=== PATIENT | female | born 1990 | race African-American/Black ===

== ENCOUNTER 2020-10-28 15:40 | Inpatient (IN) | payer OTHER ==
[2020-10-28 17:45] LABS: BASO % 0.4 % (0-2.0); EOS % 0.9 % (0-4.5); HEMATOCRIT 28.8 % (32.4-45.2); HEMOGLOBIN 9.8 GM/dL (10.7-15.3); LYMPH % 15.5 % (8-40); MCH 29.1 pg (25.7-33.7); MEAN CELL VOLUME 85.5 fl (80-96); MEAN PLT VOLUME 8.4 fl (7.5-11.1); MONO % 7.6 % (3.8-10.2); NEUT % 75.6 % (42.8-82.8); PLATELET COUNT 235 K/MM3 (134-434); RBC 3.37 M/mm3 (3.60-5.2); RDW 13.8 % (11.6-15.6); WHITE BLOOD COUNT 9.4 K/mm3 (4.0-10.0)
[2020-10-28 18:12] VITALS: BMI 34.5
[2020-10-28 18:14] LABS: POTASSIUM 3.6 mmol/L (3.5-5.1)
[2020-10-28 18:15] LABS: CALCIUM 8.2 mg/dL (8.5-10.1)
[2020-10-28 18:16] LABS: BLOOD UREA NITROGEN 11.8 mg/dL (7-18)
[2020-10-28 18:19] LABS: CREATININE 0.6 mg/dL (0.55-1.3)
[2020-10-28] MEDS ORDERED: DEXTROSE 5%-LACTATED RINGERS 1,000 ML IV SCH ×2 (18:30→23:00)
[2020-10-28 18:48] LABS: INR 0.97 (0.83-1.09); PROTHROMBIN TIME (PATIENT) 11.7 SEC (9.7-13.0)
[2020-10-28 18:51] LABS: ACTIVATED PTT 27.7 SECONDS (25.2-36.5)
[2020-10-28 19:14] LABS: HIV INTERPRETATION NEGATIVE (NEGATIVE)
[2020-10-28] MEDS ORDERED: DINOPROSTONE 10 MG VAGINAL SUPPOSITORY VG ONE (22:30)
[2020-10-28] MEDS ORDERED: PROMETHAZINE HCL 25 MG/1 ML VIAL IVPUSH ONE (23:02)
[2020-10-29] MEDS ORDERED: BUTORPHANOL TARTRATE 1 MG/ML VIAL IVPB ONE (01:02)
[2020-10-29] MEDS ORDERED: OXYTOCIN 30 UNITS in 0.9% NS 30 UNIT/500 ML INFUS.BAG IVPB SCH (08:30)
[2020-10-29 08:54] LABS: POC NITRAZINE POS
[2020-10-29] MEDS ORDERED: OXYTOCIN 20 UNITS in 0.9% NS 20 UNIT/1,000 ML INFUS.BAG IV ONE ×3 (08:57→13:15)
[2020-10-29] MEDS ORDERED: AMPICILLIN - 2 GM in SODIUM CHLORIDE 100 ML IVPB ONE (10:00)
[2020-10-29] MEDS ORDERED: BUTORPHANOL TARTRATE 2 MG/ML VIAL ONE (11:11)
[2020-10-29] MEDS ORDERED: PROMETHAZINE HCL 25 MG/1 ML VIAL ONE (11:12)
[2020-10-29] MEDS ORDERED: WITCH HAZEL 50% (TUCKS) 40 PAD/JAR PAD TP PRN (13:24)
[2020-10-29] MEDS ORDERED: oxyCODONE HCL 5 MG TABLET PO PRN (13:24)
[2020-10-29] MEDS ORDERED: BISACODYL 10 MG SUPP.RECT RC PRN (13:24)
[2020-10-29] MEDS ORDERED: BENZOCAINE 28 GM HEMORRHOIDAL OINTMENT TP PRN (13:24)
[2020-10-29] MEDS ORDERED: METHYLERGONOVINE MALEATE 0.2 MG/1 ML AMP IM PRN (13:24)
[2020-10-29] MEDS ORDERED: BENZOCAINE 20% 57 GM BOTTLE TP PRN (13:24)
[2020-10-29] MEDS ORDERED: OXYTOCIN 20 UNITS in 0.9% NS 20 UNIT/1,000 ML INFUS.BAG IV SCH (13:30)
[2020-10-29] MEDS: ACETAMINOPHEN 325 MG TABLET (FP) PO PRN (16:04)
[2020-10-29] MEDS: IBUPROFEN 600 MG TABLET (FP) PO PRN (16:05)
[2020-10-30] MEDS: ACETAMINOPHEN 325 MG TABLET (FP) PO PRN (02:00)
[2020-10-30] MEDS: IBUPROFEN 600 MG TABLET (FP) PO PRN (02:00)
[2020-10-30 09:31] LABS: BASO % 0.4 % (0-2.0); HEMATOCRIT 25.6 % (32.4-45.2); HEMOGLOBIN 8.8 GM/dL (10.7-15.3); LYMPH % 15.3 % (8-40); MCH 29.4 pg (25.7-33.7); MCHC 34.3 g/dl (32.0-36.0); MEAN CELL VOLUME 85.7 fl (80-96); MEAN PLT VOLUME 8.9 fl (7.5-11.1); MONO % 7.1 % (3.8-10.2); NEUT % 76.2 % (42.8-82.8); PLATELET COUNT 174 K/MM3 (134-434); RBC 2.99 M/mm3 (3.60-5.2); RDW 14.1 % (11.6-15.6); WHITE BLOOD COUNT 10.9 K/mm3 (4.0-10.0)
[2020-10-30] MEDS: PRENATAL VITAMINS W/ FOLIC ACID TABLET (FP) PO SCH (09:51)
[2020-10-30] MEDS ORDERED: DIPHTH,PERTUSS(ACELL),TET 0.5 ML DISP.SYRIN IM ONE (10:00)
[2020-10-30] MEDS ORDERED: SENNOSIDES/DOCUSATE COMBO (SENNA PLUS) TABLET (UD) PO PRN (22:00)
[2020-10-31] MEDS: PRENATAL VITAMINS W/ FOLIC ACID TABLET (FP) PO SCH (09:55)
[2020-10-31 10:48] VITALS: BP 134/74; PULSE 62; TEMP 98.6
== END 2020-10-31 14:45 | disposition home or self-care (01) | DRG 560 ==
LOC: JLDR 15:40 → EDBD 15:40 → J3W 10-29 14:05
PROVIDERS: ADMIT Obstetrics & Gynecology; ATTEND Obstetrics & Gynecology
PROC: 3E0P7VZ Introduction of Hormone into Female Reproductive, Via Natural or Artificial Opening (ICD-10-PCS; principal; 2020-10-28)
PROC: 10E0XZZ Delivery of Products of Conception, External Approach (ICD-10-PCS; 2020-10-29)
PROC: 0W8NXZZ Division of Female Perineum, External Approach (ICD-10-PCS; 2020-10-29)
DX: O42.02 Full-term premature rupture of membranes, onset of labor within 24 hours of rupture (principal); O70.0 First degree perineal laceration during delivery; Z3A.39 39 weeks gestation of pregnancy; Z37.0 Single live birth; Z91.010 Allergy to peanuts; Z91.013 Allergy to seafood
CPT/HCPCS: 36415; 59409; 80048; 83986-QW; 85025; 85610; 85730; 86780; 86850; 86900; 86901; 87389; 90715; C9803; U0003

== ENCOUNTER 2021-03-20 11:17 | Emergency (ER) | payer OTHER ==
[2021-03-20 11:26] VITALS: BP 124/82; TEMP 98.3; BMI 29.9
[2021-03-20 12:45] LABS: URINE APPEARANCE Clear; URINE BILIRUBIN 1+ (NEGATIVE); URINE COLOR Yellow; URINE GLUCOSE (UA) Negative (NEGATIVE); URINE KETONE Trace (NEGATIVE); URINE LEUK ESTERASE Negative (NEGATIVE); URINE NITRITE Negative (NEGATIVE); URINE PROTEIN Trace (NEGATIVE)
[2021-03-20 12:53] LABS: EPI CELLS 30.8 /uL (0-25.1); HYALINE CASTS 5.33 /uL (0-3.1); URINE BACTERIA 55.9 /uL (0-1359); URINE RBC 9.1 /uL (0-23.9)
[2021-03-20 13:47] VITALS: PULSE 87
== END 2021-03-20 13:56 | disposition home or self-care (01) ==
LOC: JER 11:17
DX: O20.8 Other hemorrhage in early pregnancy (principal); Z3A.00 Weeks of gestation of pregnancy not specified
CPT/HCPCS: 36415; 76817-TC; 81003; 84702; 87086; 99284-25

== ENCOUNTER 2021-03-22 13:39 | Emergency (ER) | payer OTHER ==
[2021-03-22 13:45] VITALS: BP 118/73; PULSE 88; TEMP 97; BMI 29.3
[2021-03-22] MEDS ORDERED: ACETAMINOPHEN 500 MG TABLET (FP) PO ONE (14:18)
[2021-03-22] MEDS ORDERED: ACETAMINOPHEN 500 MG TABLET (FP) ONE (14:20)
== END 2021-03-22 21:10 | disposition home or self-care (01) ==
LOC: JERFT 13:39
DX: O20.0 Threatened abortion (principal); Z3A.01 Less than 8 weeks gestation of pregnancy
CPT/HCPCS: 36415; 76817-TC; 84702; 99284-25

== ENCOUNTER 2022-04-21 12:00 | Inpatient (IN) | payer OTHER ==
[~2022-04-21 12:00] MED LIST: CITRIC ACID/SODIUM CITRATE 30 ML UNIT-DOSE CUP PO ONE; ELECTROLYTE-148 SOLN 500 ML IV ONE
[2022-04-21] MEDS ORDERED: ELECTROLYTE-148 SOLN 500 ML IV ONE (12:30)
[2022-04-21 12:46] VITALS: BMI 33.5
[2022-04-21] MEDS ORDERED: ONDANSETRON 4 MG/2 ML VIAL IVPUSH PRN (13:04)
[2022-04-21] MEDS ORDERED: ACETAMINOPHEN 325 MG TABLET (FP) PO PRN (13:04)
[2022-04-21] MEDS ORDERED: IBUPROFEN 600 MG TABLET (FP) PO PRN (13:04)
[2022-04-21] MEDS ORDERED: ceFAZolin SODIUM 1 GM VIAL ONE (13:23)
[2022-04-21] MEDS ORDERED: PHENYLEPHRINE HCL 10 MG/1 ML SINGLE DOSE VIAL ONE (13:23)
[2022-04-21] MEDS ORDERED: morphine SULFATE/PF 1 MG/2 ML (2cc Syringe - QUVA) ONE (13:23)
[2022-04-21] MEDS ORDERED: MIDAZOLAM HCL 2 MG/2 ML SINGLE DOSE VIAL ONE (14:12)
[2022-04-21] MEDS ORDERED: OXYTOCIN 20 UNITS in 0.9% NS 20 UNIT/1,000 ML INFUS.BAG IV ONE (14:51)
[2022-04-21] MEDS: OXYTOCIN 20 UNITS in 0.9% NS 20 UNIT/1,000 ML INFUS.BAG IV SCH ×2 (15:00→22:19)
[2022-04-21] MEDS ORDERED: METHYLERGONOVINE MALEATE 0.2 MG/1 ML AMP IM PRN (15:06)
[2022-04-21] MEDS ORDERED: ELECTROLYTE-148 SOLN 1,000 ML IV SCH (15:15)
[2022-04-21] MEDS: IBUPROFEN 800 MG/8 ML IJ IVPB PRN (16:53)
[2022-04-21] MEDS: SIMETHICONE 80 MG TAB.CHEW (FP) PO PRN (21:50)
[2022-04-22] MEDS: IBUPROFEN 800 MG/8 ML IJ IVPB PRN (05:11)
[2022-04-22] MEDS: SIMETHICONE 80 MG TAB.CHEW (FP) PO PRN ×4 (05:11→21:39)
[2022-04-22 08:35] LABS: BASO % 0.3 % (0-2.0); EOS % 0.8 % (0-4.5); HEMATOCRIT 29.4 % (32.4-45.2); HEMOGLOBIN 10.2 GM/dL (10.7-15.3); LYMPH % 11.3 % (8-40); MCH 29.4 pg (25.7-33.7); MCHC 34.6 g/dl (32.0-36.0); MEAN PLT VOLUME 8.6 fl (7.5-11.1); MONO % 6.9 % (3.8-10.2); NEUT % 80.7 % (42.8-82.8); PLATELET COUNT 148 10^3/uL (134-434); RBC 3.46 M/mm3 (3.60-5.2); RDW 13.7 % (11.6-15.6); WHITE BLOOD COUNT 10.4 K/mm3 (4.0-10.0)
[2022-04-22] MEDS: PRENATAL VITAMINS W/ FOLIC ACID TABLET (FP) PO SCH (09:58)
[2022-04-22] MEDS: ACETAMINOPHEN 325 MG TABLET (FP) PO PRN (09:58)
[2022-04-22] MEDS: oxyCODONE HCL 5 MG TABLET PO PRN ×3 (10:59→21:40)
[2022-04-22] MEDS: IBUPROFEN 600 MG TABLET (FP) PO PRN (14:20)
[2022-04-22] MEDS ORDERED: BISACODYL 10 MG SUPP.RECT RC PRN (15:06)
[2022-04-22] MEDS: OXYTOCIN 20 UNITS in 0.9% NS 20 UNIT/1,000 ML INFUS.BAG IV SCH (19:57)
[2022-04-22] MEDS: SENNOSIDES/DOCUSATE COMBO (SENNA PLUS) TABLET (UD) PO PRN (21:39)
[2022-04-23] MEDS: SIMETHICONE 80 MG TAB.CHEW (FP) PO PRN ×5 (01:39→22:24)
[2022-04-23] MEDS: oxyCODONE HCL 5 MG TABLET PO PRN ×4 (01:39→22:12)
[2022-04-23] MEDS: IBUPROFEN 600 MG TABLET (FP) PO PRN (08:24)
[2022-04-23] MEDS: ACETAMINOPHEN 325 MG TABLET (FP) PO PRN (10:37)
[2022-04-23] MEDS: PRENATAL VITAMINS W/ FOLIC ACID TABLET (FP) PO SCH (10:37)
[2022-04-23] MEDS: SENNOSIDES/DOCUSATE COMBO (SENNA PLUS) TABLET (UD) PO PRN (22:23)
[2022-04-24] MEDS: SIMETHICONE 80 MG TAB.CHEW (FP) PO PRN ×2 (06:07→09:32)
[2022-04-24] MEDS: IBUPROFEN 600 MG TABLET (FP) PO PRN (06:07)
[2022-04-24] MEDS: PRENATAL VITAMINS W/ FOLIC ACID TABLET (FP) PO SCH (09:32)
[2022-04-24] MEDS: ACETAMINOPHEN 325 MG TABLET (FP) PO PRN (09:32)
[2022-04-24 12:09] VITALS: BP 106/67; PULSE 87; RESP 18; TEMP 98
== END 2022-04-24 14:05 | disposition home or self-care (01) | DRG 540 ==
LOC: JLDR 12:00 → J3W 16:35
PROVIDERS: ADMIT Obstetrics & Gynecology; ATTEND Obstetrics & Gynecology
PROC: 10D00Z1 Extraction of Products of Conception, Low, Open Approach (ICD-10-PCS; principal; 2022-04-21)
DX: O82 Encounter for cesarean delivery without indication (principal); O69.2XX0 Labor and delivery complicated by other cord entanglement, with compression, not applicable or unspecified; O69.1XX0 Labor and delivery complicated by cord around neck, with compression, not applicable or unspecified; Z3A.39 39 weeks gestation of pregnancy; Z37.0 Single live birth
CPT/HCPCS: 36415; 85025; 88307-TC